=== PATIENT | female | born 1975 | race Caucasian/White ===

== ENCOUNTER 2024-02-20 21:56 | Emergency (ER) | payer OTHER, SELFPAY ==
[2024-02-20 21:57] VITALS: BP 136/84
--- NOTE | 2024-02-20 22:36 | ED.GENMED ---
History of Present Illness
General
Chief Complaint: Medication Reaction
Source: patient and family (Daughters present at the bedside)
Exam Limitations: none
Time Seen by Provider: 02/20/24 22:27
Travel History
Have you had any contact with someone who has COVID-19?: No
Do you have any symptoms of coronavirus? Fever > 100 degrees, chills, cough, shortness of breath, sore throat, loss of taste or smell, muscle aches, or headache?: No
History of Present Illness
History of Present Illness:
This is a pleasant 48-year-old female that presents with heart palpitations. She states that they began around 830 and lasted approximately 1 and half hours. Patient states that she was started on azithromycin tonight for an ear infection. She
visited urgent care and they prescribed it. Patient concerned because discharge paperwork from urgent care said to go to the emergency department if she experiences heart palpitations. Patient denies chest pain or shortness of breath. Currently
patient denies any symptoms but she is here for evaluation. She wishes to discontinue the azithromycin.
Vital signs are stable. Patient not hypoxic
Nursing note reviewed. I agree with nursing documentation up to this point in time.
Home Meds and allergies reviewed.
NUMBER AND COMPLEXITY OF PROBLEMS ADDRESSED AT THE ENCOUNTER
� Chronic conditions affecting care: Frequent ear infections
� Acute Exacerbation and/or Progression of Chronic Illness: Frequent ear infections
� Differential Diagnosis includes: Anxiety, SVT, thyroid issue, palpitations
AMOUNT AND/OR COMPLEXITY OF DATA TO BE REVIEWED AND ANALYZED
I performed an independent evaluation of the following and my interpretation is:
EKG: EKG shows normal sinus rhythm rate of 78 with normal intervals, normal axis. No evidence of acute ischemia present. When compared with previous EKG dated November 26, 2015, no obvious change noted.
CT:
X-rays:
Ultrasound:
Laboratory Studies:
Other:
Review of other/old records:
Clinical information was obtained by an independent historian:
Prescriptions/Medications Considered but not given:
Further testing considered but not performed:
RISK OF COMPLICATIONS AND/OR MORBIDITY OR MORTALITY OF PATIENT MANAGEMENT
Social determinants of health affecting care: Good Social Support
Discussion with other providers:
Escalation of care including admission/observation vs risk of discharge considered:
CRITICAL CARE NOTE:
Total Time (exclusive of procedures):
Update:
Past History
Past History
ED Past Medical History: None
ED Past Surgical History: Appendectomy and Gynecological
Social History
Personal:
Living: with family
Employment: Employed
Phy Exam
General Physical Exam
General Presentation: well appearing and no apparent distress
General Skin: warm and dry
General Habitus: normal
General Mental: alert
General Hydration: appears well hydrated
ENT Exam
ENT Exam: EOMI, pharynx normal, neck supple and normocephalic
Eye Exam
Eye Exam: PERRL, cornea clear and conjunctiva normal
Cardiovascular Exam
Cardiovascular Exam: regular rate/rhythm, no edema, no murmur and normal peripheral pulses
Pulmonary Exam
Pulmonary Exam: lungs clear, no respiratory distress, no rales, no crackles, no rhonchi, no stridor, no wheezing and no cough
Gastrointestinal Exam
Gastrointestinal Exam: normal bowel sounds, non tender, soft, no organomegaly, no pulsatile mass and non distended
Neurological Exam
Neurological Exam: alert, oriented x3, no motor deficits and speech normal
Musculoskeletal Exam
Musculoskeletal Exam: full ROM and no edema
Skin Exam
Skin Exam: normal color, warm/dry, no rash and no petechia
Psychiatric Exam
Psychiatric Exam: normal mood/affect
Course
Orders/Labs/Results
Orders:
Orders
02/20/24 22:07
Electrocardiogram (*1) Urgent
Reason for Study: Palpitations
EKG- Treatment ONCE
02/20/24 22:35
Cardiac Monitoring- Treatment ONCE
02/20/24 22:48
Complete Blood Count/With Diff Urgent
Comprehensive Metabolic Panel Urgent
Magnesium Urgent
TSH Urgent
Troponin I Urgent
Abnormal Lab Results
02/20/24
22:48
RBC 3.74 L 10^6/uL
(4.20-5.40)
Hgb 11.8 L g/dL
(12.0-16.0)
Hct 33.7 L %
(37.0-47.0)
MCH 31.6 H pg
(27.0-31.0)
Absolute Monos (auto) 0.7 H 10^3/uL
(0.1-0.6)
BUN 19 H mg/dl
(7-17)
Glucose 112 H mg/dl
(70-99)
02/20/24 22:48
02/20/24 22:48
Vital Signs
Initial and Last Documented VS:
Initial Vital Signs
Temp Pulse Resp BP Pulse Ox
97.8 F 86 18 136/84 97
02/20/24 21:57 02/20/24 21:57 02/20/24 21:57 02/20/24 21:57 02/20/24 21:57
Last Documented Vital Signs
Temp Pulse Resp BP Pulse Ox
97.8 F 71 14 112/70 97
02/20/24 21:57 02/21/24 00:00 02/21/24 00:00 02/21/24 00:00 02/20/24 21:57
*Critical Care Note
Total Time (30-74mins, 75-104mins- exclusive of procedures): Not Applicable
ED Attending Note
-
Portions of this chart may have been created with voice recognition software.� Occasional wrong word or��sound alike� substitutions may have occurred due to the inherent limitations of voice recognition software.
Discharge Plan
Departure
Patient Disposition: Home (Routine Discharge)
Date of Disposition: 02/20/24
Time of Disposition: 23:51
Patient with high blood pressure during this ER visit?: Yes
Condition: Good
Discharge Problem:
Palpitations, Medication reaction
Instructions: Palpitations (DC)
Prescriptions:
New
cefdinir 300 mg capsule
300 mg PO BID Qty: 14 0RF
No Action
cetirizine 10 MG tablet
10 mg PO DAILY
meloxicam 15 MG tablet
15 mg PO PRN PRN (Reason: cramps)
ibuprofen 200 MG tablet
200 mg PO PRN PRN (Reason: pain)
mometasone [Nasonex] 17 GM spray,non-aerosol
1 spray intranasal DAILY
One Daily Women's Health 1 EACH tablet
1 ea PO DAILY
pantoprazole [Protonix] 40 mg tablet,delayed release (DR/EC)
40 mg PO DAILY Qty: 14 0RF
ondansetron 4 mg tablet,disintegrating
4 mg PO TIDPRN PRN (Reason: nausea/vomiting) Qty: 14 0RF
Tylenol PM Extra Strength 25-500 mg Tablet
1 tab PO HS PRN (Reason: sleep)
escitalopram oxalate 5 mg Tablet
5 mg PO DAILY
Referrals:
Ora Benito MD [Family Provider] -
Activity Restrictions/Additional Instructions:
Please discontinue your azithromycin and take the cefdinir prescribed today instead
It was a pleasure meeting you and taking part in your care. We hope for your continued healing and wellness.
Please read discharge instructions in their entirety. However, they are for general education and may not describe your exact diagnosis at discharge. Information on your ER visit and medical conditions were discussed with you along with appropriate
follow up information...
If indicated, please take your medications as instructed and indicated on discharge paperwork.
Please schedule a follow up appointment as directed. Call to schedule an appointment
Please return to the emergency department with ANY change in, persisting, or worsening of symptoms. If any of your symptoms do not improve, or persist, or become more severe within 6-12 hours, please return to the emergency department for further
care.
Please return to the emergency department if you develop a headache, neck pain/stiffness, fever greater than 100.4F, chest pain, shortness of breath, persistent nausea, vomiting, slurred speech, difficulty walking, numbness/tingling, weakness, signs
of infection or any other symptoms that are worrisome to you.
If you have any questions or concerns please do not hesitate to call the Hospital at or E-mail me directly at [email or web address]
Interventions
Interventions:
*Risk Screen - Suicide Last Done: 02/20/24 21:57
*General Assessment Last Done: 02/20/24 22:49
*Neglect/Abuse Screening Last Done: 02/20/24 21:57
*ED COVID-19 Vaccine History Last Done: 02/20/24 22:37
*Nursing Disposition Last Done: 02/21/24 00:15
ED- Cardiac Assessment Last Done: 02/20/24 22:54
ED- Pulmonary Assessment Last Done: 02/20/24 22:54
ED-Skin Assessment Last Done: 02/20/24 22:54
Discharge Date and Time
Discharge Date/Time: 02/21/24 00:15
Print Language: RUSSIAN
[2024-02-20 22:42] VITALS: BMI 28.7
[2024-02-20 22:49] VITALS: BP 129/83
--- NOTE | 2024-02-20 22:55 | EDRN ---
Pt says she took first 2 tablets of zithromax today for ear infection and when she laid down tonight, she noticed her heart was racing. Pt says her HR is usually in the 60's and her Fitbit said it was in the 90's. Pt looked at the side effects of
zithromax and and it said to seek medical attention immediately for fast HR. Pt says her ear feels better now and her HR feels normal. No cp, sob, abd pain, nv.
[2024-02-20 22:56] LABS: % Basophils 0.6 % (0-2); % Eosinophils 2.6 % (0-6); % Immature Granulocytes 0.2 % (0-0.5); % Lymphocytes 26.8 % (20.5-51.1); % Monocytes 8.7 % (1.7-9.3); % Neutrophils 61.1 % (42.2-75.2); Absolute Basophils 0.1 10^3/uL (0-0.2); Absolute Eosinophils 0.2 10^3/uL (0-0.7); Absolute Lymphocytes 2.3 10^3/uL (1.2-3.4); Absolute Monocytes 0.7 10^3/uL (0.1-0.6); Absolute Neutrophils 5.1 10^3/uL (1.4-6.5); Hematocrit 33.7 % (37.0-47.0); Hemoglobin 11.8 g/dL (12.0-16.0); Mean Corpuscular Hgb 31.6 pg (27.0-31.0); Mean Corpuscular Volume 90.1 fL (81.0-99.0); Mean Platelet Volume 10.3 fL (7.4-10.4); Nucleated Red Blood Cells % 0 %; Platelet Count 307 10^3/uL (130-400); Red Blood Cell Count 3.74 10^6/uL (4.20-5.40); Red Cell Dist. Width 12.4 % (11.5-14.5); White Blood Cell Count 8.4 10^3/uL (4.8-10.8)
[2024-02-20 23:00] VITALS: BP 124/74
[2024-02-20 23:18] LABS: ALT (SGPT) 19 U/L (0-35); AST (SGOT) 28 U/L (14-36); Albumin 3.9 g/dl (3.5-5.0); Alkaline Phosphatase 69 U/L (38-126); Blood Urea Nitrogen 19 mg/dl (7-17); Calcium 9.5 mg/dl (8.4-10.2); Carbon Dioxide 26 mmol/L (22-30); Chloride 105 mmol/L (98-107); Estimated Creatinine Clearance 93 ml/min; Glucose 112 mg/dl (70-99); Magnesium 1.9 mg/dl (1.6-2.3); Potassium 3.6 mmol/L (3.5-5.1); Sodium 141 mmol/L (135-145); Total Bilirubin 0.2 mg/dl (0.2-1.3); Total Protein 6.4 g/dl (6.3-8.2); eGFR > 60.00
[2024-02-20 23:29] LABS: Troponin I < 0.012 ng/ml
[2024-02-20 23:48] LABS: TSH 3.05 uIU/ml (0.47-4.68)
[2024-02-21] VITALS: BP 112/70
== END 2024-02-21 00:15 | disposition home or self-care (01) ==
LOC: EMR 21:56
PROVIDERS: EMERGENCY PHYSICIAN Student in an Organized Health Care Education/Training Program; FAMILY PHYSICIAN Internal Medicine
DX: R00.2 Palpitations (principal); T36.3X5A Adverse effect of macrolides, initial encounter; R03.0 Elevated blood-pressure reading, without diagnosis of hypertension
CPT/HCPCS: 99284; 80053; 83735; 84443; 84484; 85025; 93005

== ENCOUNTER → 2024-06-30 13:21 | Outpatient (REF) | payer OTHER, SELFPAY | LOC: HWWDC 13:21 | PROVIDERS: ATTENDING PHYSICIAN Obstetrics & Gynecology; FAMILY PHYSICIAN Internal Medicine | DX: Z12.31 Encounter for screening mammogram for malignant neoplasm of breast (principal) | CPT/HCPCS: 77063; 77067 ==

== ENCOUNTER 2025-04-27 11:07 | Emergency (ER) | payer OTHER, SELFPAY ==
[2025-04-27 11:12] VITALS: BP 144/87
[2025-04-27 11:48] LABS: Hematocrit 42.0 % (37.0-47.0); Hemoglobin 14.1 g/dL (12.0-16.0); Mean Corp Hgb Conc. 33.6 g/dL (33.0-37.0); Mean Corpuscular Volume 91.5 fL (81.0-99.0); Nucleated Red Blood Cells % 0 %; Platelet Count 371 10^3/uL (130-400); Red Cell Dist. Width 12.2 % (11.5-14.5)
[2025-04-27 12:01] LABS: ALT (SGPT) 15 U/L (0-35); AST (SGOT) 27 U/L (14-36); Albumin 4.9 g/dl (3.5-5.0); Alkaline Phosphatase 83 U/L (38-126); Blood Urea Nitrogen 15 mg/dl (7-17); Calcium 10.4 mg/dl (8.4-10.2); Carbon Dioxide 27 mmol/L (22-30); Chloride 105 mmol/L (98-107); Glucose 93 mg/dl (70-99); Magnesium 2.0 mg/dl (1.6-2.3); Potassium 4.5 mmol/L (3.5-5.1); Sodium 140 mmol/L (135-145); Total Protein 7.8 g/dl (6.3-8.2); eGFR > 60.00
[2025-04-27 12:11] LABS: Troponin I < 0.012 ng/ml
--- NOTE | 2025-04-27 12:28 | ED.GENMED ---
History of Present Illness
General
Chief Complaint: Heart Rate Problem
Time Seen by Provider: 04/27/25 12:28
History of Present Illness
History of Present Illness:
TIME OF INITIAL EVALUATION
- 12:30 PM
REVIEW OF OLD RECORDS
- I reviewed records, the patient was seen in the emergency department in February 2020 for also with palpitations and at that time had an unremarkable EKG
Note:
CHIEF COMPLAINT(S)
Chest pressure, increased heart rate, and numbness in both arms.
HISTORY OF PRESENT ILLNESS
The patient is a 49-year-old female presenting with chest pressure, increased heart rate, and numbness in both arms. These symptoms initially began on Wednesday evening after the patient took a magnesium supplement intended to aid sleep. The patient
noted she had numbness in both arms, which she associated with her menopausal symptoms, included watching online health advice. She woke up at 5 AM on and subsequently stopped taking the supplement. Since then, she reports having
intermittent episodes of chest pressure most recently at 3:30 AM today without resolution, persisting as constant pressure. Previous evaluations did not reveal significant findings. The patient also has a history of stopping Lexapro (Escitalopram)
abruptly in November after taking it for six years without tapering off, possibly contributing to anxiety-related symptoms such as palpitations and tingling. She reports abstaining from caffeine for three months, as her grandmother had similar
symptoms associated with caffeine intake.
EXTERNAL RECORDS REVIEWED
The patient had previous evaluations in urgent care, which were non-revealing for serious conditions. Current hospital records show troponin levels and electrocardiogram results are normal, and there is ongoing monitoring of the thyroid function due
to a low thyroid-stimulating hormone suggesting possible hyperthyroidism.
SOCIAL HISTORY
The patient discontinued caffeine three months ago due to similar symptoms experienced by a family member and has observed improvement since.
MEDICATIONS
The patient was previously on Lexapro (Escitalopram) 5 mg for anxiety but discontinued abruptly in November.
REVIEW OF SYSTEMS
- Cardiovascular: The patient reports chest pressure and palpitations.
- Neurological: Numbness in both arms previously noted.
- Psychological: Reported anxiety symptoms and history of antidepressant use.
PHYSICAL EXAM
General: Alert, no acute distress.
Skin: Warm, dry.
Head: Normocephalic, atraumatic.
Neck: Supple, trachea midline.
Eyes, Ears, Nose, Mouth, and Throat: Oral mucosa moist.
Cardiovascular: Normal peripheral perfusion, no edema.
Respiratory: Respirations are non-labored.
Gastrointestinal: Abdomen nondistended.
Back: Normal range of motion, normal alignment.
Musculoskeletal: Normal range of motion, normal strength.
Neurological: Alert and oriented to person, place, time, and situation, no focal neurological deficit observed.
Psychiatric: The patient frequently cries at times and appears rather anxious
PLAN
1. Discharge the patient with a plan to follow up with a mechanical systems design engineer through the chest pain hotline for potential ischemic assessment. Assist with expedited cardiology referral.
2. Monitor thyroid function tests and consider endocrinology referral if hyperthyroidism is confirmed, as it may relate to symptoms.
3. Review anxiety management options with primary care physician, considering potential reintroduction of anxiolytic treatment.
DIFFERENTIAL DIAGNOSIS
The Differential Diagnosis includes, in no particular order and is not limited to:
1. Cardiac ischemia
2. Anxiety disorder
3. Hyperthyroidism
4. Panic attack
5. Perimenopausal syndrome
6. Magnesium supplement reaction
7. Caffeine withdrawal
8. Atypical chest pain
9. Medication withdrawal effects
10. Electrolyte imbalance
RADIOLOGY
- No clear indication
EKG
- Sinus 91, normal axis, nonspecific ST abnormality, QTc 460 ms, TSH 0.03 however free T4 is normal
LABS
- Chemistries unremarkable, troponin less than 0.012, magnesium level normal. CBC unremarkable
UPDATE
-SUMMARY OF ENCOUNTER
The patient, a 49-year-old female, was seen in the emergency department due to symptoms of chest pressure, increased heart rate, and numbness in both arms. These symptoms began after the patient took a magnesium supplement. Evaluation included a
review of thyroid function due to previously noted low levels of thyroid-stimulating hormone (TSH), with the TSH being low, but a normal free T4 level, suggesting hyperthyroidism was not immediately indicated. Prior cardiac evaluations were
non-revealing for serious conditions, and current investigations include normal serial cardiac markers and ECGs.
DISPOSITION
Discharge to follow up with primary care physician and mechanical systems design engineer.
ASSESSMENT
The patients symptoms may relate to anxiety, potential issues with abrupt Lexapro (escitalopram) withdrawal, and possible perimenopausal symptoms. Current thyroid function suggests a low TSH level while free T4 remains within normal limits.
Considerations of hyperthyroidism were discussed, but further cardiology evaluation is a priority.
PLAN
Discharge the patient with instructions to follow up with their primary care physician for management of anxiety and potential recommencement of medication management. Expedite referral and follow-up with a mechanical systems design engineer for further evaluation of
chest pain. Monitor thyroid function and refer to endocrinology if required.
INDEPENDENT REVIEW OF LABS AND INTERPRETATION OF TESTS
My independent review of thyroid function tests revealed a low TSH and a normal free T4, indicating a need for further monitoring of thyroid function.
FOLLOW-UP INSTRUCTIONS
The patient is instructed to follow up with their primary care physician and a mechanical systems design engineer for further evaluation and management of presenting symptoms.
MEDICATION RECONCILIATION
The patient was previously on Lexapro (escitalopram) 5 mg for anxiety but discontinued abruptly. No new prescriptions were issued during this visit.
MEDICAL DECISION MAKING
- Number and Complexity of Problems Addressed: Chronic conditions affecting care include prior anxiety disorder treatment with Lexapro, potential withdrawal effects, menopausal symptoms, and evaluation for hyperthyroidism. DDx includes cardiac
ischemia, anxiety disorder, hyperthyroidism, panic attack, perimenopausal syndrome, magnesium supplement reaction, caffeine withdrawal, atypical chest pain, and medication withdrawal effects.
- Data:
Category 1: Non-emergency department records reviewed, including external records showing ongoing monitoring of thyroid function due to previously low TSH.
Category 2: My independent interpretation of thyroid labs indicates a low TSH with a normal free T4 level, suggesting further endocrinology assessment may be needed if hyperthyroid symptoms persist.
- Risk: Consideration of Admission/Observation: Escalation of care including admission/observation was considered given the complexity and risk of the patients presenting complaint, exam findings, and their underlying comorbidities. However,
ultimately I feel the patient is safe for outpatient management with close follow-up. Reasoning: Work-up is reassuring, does not reveal any acute life/organ-threatening processes, patients symptoms are well-controlled upon reevaluation,
reexamination is reassuring, vitals are stable, patient is agreeable with discharge, reliable for follow-up.
Strongly suspect an anxiety component as the patient frequently was crying throughout the stay in the emergency department. Although TSH was very low, free T4 is normal. Her heart rate has remained in the 80s throughout her stay in the Emergency
Department. She did report chest discomfort intermittently for several days now with a normal troponin and relatively unremarkable EKG�chest pain hotline used for Dr. Rosales. The patient states that her discomfort and symptoms resolved after
hearing that her EKG was normal initially.
DIAGNOSIS
- Chest pain
- Palpitations
- Anxiety Disorder [F41.9]
Past History
Past History
ED Past Medical History: None
ED Past Surgical History: Appendectomy and Gynecological
Social History
Personal:
Living: with family
Employment: Employed
Phy Exam
Physical Exam
Physical Exam:
See HPI
Course
Orders/Labs/Results
Orders:
Orders
04/27/25 11:08
EKG [Electrocardiogram (*1)] Urgent
Reason for Study: Chest Pain
EKG- Treatment ONCE
04/27/25 11:27
Complete Blood Count/With Diff Urgent
Comprehensive Metabolic Panel Urgent
Free T4 Urgent
Magnesium Urgent
TSH Reflex To Free T4 Urgent
Troponin I Urgent
Abnormal Lab Results
04/27/25
11:27
Monocytes % 9.6 H %
(1.7-9.3)
Calcium 10.4 H mg/dl
(8.4-10.2)
TSH (Reflex) 0.03 L uIU/ml
(0.47-4.68)
04/27/25 11:27
04/27/25 11:27
Vital Signs
Initial and Last Documented VS:
Initial Vital Signs
Temp Pulse Resp BP Pulse Ox
36.8 C 79 20 144/87 98
04/27/25 11:12 04/27/25 11:12 04/27/25 11:12 04/27/25 11:12 04/27/25 11:12
Last Documented Vital Signs
Temp Pulse Resp BP Pulse Ox
36.8 C 87 33 127/96 98
04/27/25 11:12 04/27/25 12:31 04/27/25 12:31 04/27/25 12:31 04/27/25 12:32
*Pulse Oximetry
SaO2: 98
Oxygen Mode of Delivery: Room air
Patient hypoxic: no
*Critical Care Note
Total Time (30-74mins, 75-104mins- exclusive of procedures): Not Applicable
ED Attending Note
-
Portions of this chart may have been created with voice recognition software.� Occasional wrong word or��sound alike� substitutions may have occurred due to the inherent limitations of voice recognition software.
Discharge Plan
Departure
Patient Disposition: Home (Routine Discharge)
Date of Disposition: 04/27/25
Time of Disposition: 13:17
Patient with high blood pressure during this ER visit?: Yes
Discharge Problem:
Palpitations
Instructions: Palpitations (DC), Chest Pain DCA Follow Up, BLOOD PRESSURE
Prescriptions:
No Action
cetirizine 10 MG tablet
10 mg PO DAILY
meloxicam 15 MG tablet
15 mg PO PRN PRN (Reason: cramps)
ibuprofen 200 MG tablet
200 mg PO PRN PRN (Reason: pain)
mometasone [Nasonex] 17 GM spray,non-aerosol
1 spray intranasal DAILY
One Daily Women's Health 1 EACH tablet
1 ea PO DAILY
pantoprazole [Protonix] 40 mg tablet,delayed release (DR/EC)
40 mg PO DAILY Qty: 14 0RF
ondansetron 4 mg tablet,disintegrating
4 mg PO TIDPRN PRN (Reason: nausea/vomiting) Qty: 14 0RF
Tylenol PM Extra Strength 25-500 mg Tablet
1 tab PO HS PRN (Reason: sleep)
escitalopram oxalate 5 mg Tablet
5 mg PO DAILY
cefdinir 300 mg capsule
300 mg PO BID Qty: 14 0RF
Referrals:
Golden Rosales MD [Active, Cardiology]
Activity Restrictions/Additional Instructions:
Follow-up with Dr. Diaz their office for appointment. We did notify their office that you were here so hopefully you can get in rather soon. Return here if worse or other concerns.
Interventions
Interventions:
*Risk Screen - Suicide Last Done: 04/27/25 11:12
*General Assessment Last Done: 04/27/25 12:29
*Neglect/Abuse Screening Last Done: 04/27/25 12:29
*ED- Fall Risk Assessment Last Done: 04/27/25 12:29
*ED COVID-19 Vaccine History Last Done: 04/27/25 12:29
ED- Cardiac Assessment Last Done: 04/27/25 12:29
ED- Pulmonary Assessment Last Done: 04/27/25 12:29
Discharge Date and Time
Print Language: ICELANDIC
[2025-04-27 12:29] VITALS: BMI 32.0
[2025-04-27 12:31] VITALS: BP 127/96
[2025-04-27 13:44] VITALS: BP 126/86
== END 2025-04-27 13:56 | disposition home or self-care (01) ==
LOC: EMR 11:07
PROVIDERS: Emergency Medicine; EMERGENCY PHYSICIAN Emergency Medicine; FAMILY PHYSICIAN Internal Medicine
DX: R00.2 Palpitations (principal); R03.0 Elevated blood-pressure reading, without diagnosis of hypertension
CPT/HCPCS: 99284; 80053; 83735; 84439; 84443; 84484; 85025; 93005

== ENCOUNTER → 2025-07-03 09:43 | Outpatient (REF) | payer OTHER, SELFPAY | LOC: WDC 09:43 | PROVIDERS: ATTENDING PHYSICIAN Obstetrics & Gynecology; FAMILY PHYSICIAN Internal Medicine | DX: N63.21 Unspecified lump in the left breast, upper outer quadrant (principal) | CPT/HCPCS: 76642; 77062; 77066 ==

== ENCOUNTER → 2025-08-29 07:04 | Outpatient (REF) | payer OTHER, SELFPAY | LOC: HWRCS 07:04 | PROVIDERS: ATTENDING PHYSICIAN Internal Medicine Cardiovascular Disease; FAMILY PHYSICIAN Internal Medicine | DX: R01.1 Cardiac murmur, unspecified (principal) | CPT/HCPCS: 93306 ==

== ENCOUNTER → 2025-09-04 09:50 | Outpatient (REF) | payer OTHER, SELFPAY | LOC: RCS 09:50 | PROVIDERS: ATTENDING PHYSICIAN Internal Medicine Cardiovascular Disease; FAMILY PHYSICIAN Internal Medicine | DX: R07.9 Chest pain, unspecified (principal); R01.1 Cardiac murmur, unspecified | CPT/HCPCS: 93017; 93350 ==